=== PATIENT | female | born 1965 | race Caucasian/White ===

== ENCOUNTER 2017-01-19 05:38 | Day surgery (SDC) | payer OTHER ==
[~2017-01-19] VITALS: Ht 147.3 cm; Wt 79.0 kg
[2017-01-19] MEDS ORDERED: LACTATED RINGERS 1,000 ML IV SCH (06:08)
[2017-01-19 06:18] VITALS: BP 127/74
[2017-01-19] MEDS ORDERED: LIDOCAINE 1%, 2ML SQ PRN (06:30)
[2017-01-19] MEDS ORDERED: FENTANYL PF 250 MCG/5ML ONE (06:51)
[2017-01-19] MEDS ORDERED: MIDAZOLAM 1 MG/ML, 2ML ONE (06:51)
[2017-01-19] MEDS ORDERED: EPINEPHRINE 1 MG/ML, 1ML ONE (06:56)
[2017-01-19] MEDS ORDERED: LIDOCAINE/PF 1%, 30ML ONE (06:56)
[2017-01-19] MEDS ORDERED: NEOSPORIN OINT, 15GM ONE (06:56)
[2017-01-19] MEDS ORDERED: BUPIVACAINE/PF 0.5% ONE (06:56)
[2017-01-19] MEDS ORDERED: PROPOFOL 10 MG/ML, 20ML ONE (07:39)
[2017-01-19] MEDS ORDERED: KETOROLAC 30 MG/1 ML ONE (07:39)
[2017-01-19] MEDS ORDERED: ONDANSETRON 2MG/ML, 2ML ONE (07:39)
[2017-01-19] MEDS ORDERED: CEFAZOLIN 1,000 MG ONE (07:39)
[2017-01-19] MEDS ORDERED: DEXAMETHASONE 4 MG/ML, 1ML ONE (07:39)
[2017-01-19] MEDS ORDERED: MEPERIDINE/PF 25MG/0.5ML IVPush PRN (08:00)
[2017-01-19] MEDS ORDERED: hydrALAzine 20 MG/ML, 1ML IV PRN (08:00)
[2017-01-19] MEDS ORDERED: HYDROmorphone 1 MG/ML, 1ML IV PRN (08:00)
[2017-01-19] MEDS ORDERED: PROMETHAZINE 25 MG/ML, 1ML IV PRN (08:00)
[2017-01-19] MEDS ORDERED: OXYcodone 5 MG/5 ML ORAL.SOL UDC PO PRN (08:00)
[2017-01-19] MEDS ORDERED: ACETAMINOPHEN 325 MG TABLET PO PRN (08:00)
[2017-01-19] MEDS ORDERED: EPHEDRINE 50 MG/ML, 1ML IVPush PRN (08:00)
[2017-01-19] MEDS ORDERED: LABETALOL 5MG/ML, 20ML IV PRN (08:00)
[2017-01-19] MEDS ORDERED: MIDAZOLAM 1 MG/ML, 2ML IV PRN (08:00)
[2017-01-19] MEDS ORDERED: HYDROcodone/APAP 7.5-325MG/15ML UDC PO PRN (08:00)
[2017-01-19] MEDS ORDERED: ONDANSETRON 2MG/ML, 2ML IVPush PRN (08:00)
[2017-01-19] MEDS ORDERED: OXYcodone 5 MG/5 ML ORAL.SOL UDC ONE (08:41)
[2017-01-19] MEDS ORDERED: FENTANYL PF 100 MCG/2ML ONE (08:41)
[2017-01-19] MEDS: FENTANYL PF 100 MCG/2ML IV PRN ×2 (08:43→08:52)
== END 2017-01-19 11:00 ==
LOC: OUT 05:38
PROVIDERS: ATTEND Orthopaedic Surgery
DX: S83.231A Complex tear of medial meniscus, current injury, right knee, initial encounter (principal); M94.261 Chondromalacia, right knee; X58.XXXA Exposure to other specified factors, initial encounter; Y93.9 Activity, unspecified; Y92.9 Unspecified place or not applicable; Y99.9 Unspecified external cause status
CPT/HCPCS: 29881; J0171; J0690; J1100; J1885; J2250; J2405; J2704; J3010; J3490; J7120